=== PATIENT | male | born 1940 | race Caucasian/White ===

== ENCOUNTER 2017-05-27 17:31 | Emergency (ER) | payer OTHER ==
[~2017-05-27] VITALS: Ht 182.9 cm; Wt 159.0 kg
[2017-05-27] MEDS ORDERED: MOTRIN800 MG PO (20:39)
[2017-05-27] MEDS ORDERED: PERCOCET 5/31 TABLET PO (20:39)
[2017-05-27 21:28] VITALS: BP 140/73
== END 2017-05-27 21:30 | disposition home or self-care (01) ==
LOC: EME 17:31
PROC: 2W3CX1Z Immobilization of Right Lower Arm using Splint (ICD-10-PCS; principal; 2017-05-27)
DX: S52.571A Other intraarticular fracture of lower end of right radius, initial encounter for closed fracture (principal); S52.611A Displaced fracture of right ulna styloid process, initial encounter for closed fracture; W01.0XXA Fall on same level from slipping, tripping and stumbling without subsequent striking against object, initial encounter; Y93.01 Activity, walking, marching and hiking
CPT/HCPCS: 73090; 73110; 99281; 99284